=== PATIENT | female | born 1985 | race Two or more races ===

== ENCOUNTER 2018-06-24 14:52 | Outpatient (CLI) | payer OTHER | END 2018-06-24 15:16 | disposition home or self-care (01) | LOC: RAD 14:52 | DX: J45.998 Other asthma (principal) ==

== ENCOUNTER 2018-06-24 16:36 | Outpatient (CLI) | payer OTHER | END 2018-06-24 16:59 | disposition home or self-care (01) | LOC: EKG 16:36 | DX: R07.89 Other chest pain (principal) ==

== ENCOUNTER 2018-06-30 09:02 | Day surgery (SDC) | payer OTHER ==
[~2018-06-30] VITALS: Ht 157.5 cm; Wt 55.8 kg
[2018-06-30] MEDS ORDERED: Tylenol #3 PO (13:09)
[2018-06-30] MEDS ORDERED: MONODOX100 MG PO (13:09)
== END 2018-06-30 18:40 | disposition home or self-care (01) ==
LOC: CIR.AMB 09:02
DX: D25.0 Submucous leiomyoma of uterus (principal); N84.0 Polyp of corpus uteri

== ENCOUNTER 2024-02-17 14:06 | Outpatient (CLI) | payer OTHER ==
[~2024-02-17 14:06] MED LIST: MONODOX100 MG PO; Tylenol #3 PO
== END 2024-02-17 14:22 | disposition home or self-care (01) ==
LOC: RAD 14:06
DX: M54.50 Low back pain, unspecified (principal)